=== PATIENT | female | born 1960 | race Caucasian/White ===

== ENCOUNTER 2019-05-11 11:10 | Emergency (ER) | payer MEDICAID ==
[2019-05-11] MEDS ORDERED: IPRATROPIUM/ALBUTEROL 3 ML NEB INH STA (12:12)
[2019-05-11] MEDS ORDERED: BENZONATATE 100 MG CAPSULE PO STA (12:44)
[2019-05-11] MEDS ORDERED: DOXYCYCLINE 100 MG TABLET PO STA (12:44)
[2019-05-11] MEDS ORDERED: predniSONE 20 MG TABLET PO STA (12:44)
[2019-05-11] MEDS ORDERED: ACETAMINOPHEN 325 MG TABLET PO STA (12:44)
--- NOTE | 2019-05-11 12:46 | ED Physician Documentation ---
PD HPI URI - Stated complaint Stated Complaint: SOA/BODY PX - Chief complaint Chief Complaint: Fever - History obtained from History obtained from: Patient - History of Present Illness Timing - onset: How many weeks ago (3) Timing duration: Weeks (3) Timing details: Gradual onset Pain level max: 7 Pain level now: 5 Associated symptoms: Fever, Chills, Nasal congestion, Rhinorrhea, Sinus pain, Dry cough, Dyspnea. No: Chest pain, NVD Contributing factors: Sick contact Improves by: Rest Worsened by: Activity, Breathing Similar symptoms before: Diagnosis (pneumonia) Recently seen: Not recently seen - Additional information Additional information: smoked for 25 years, quit for 10 and then started a few months ago again. Review of Systems Ten Systems: 10 systems reviewed and negative Constitutional: reports: Fever, Chills Nose: denies: Rhinorrhea / runny nose, Congestion Respiratory: reports: Dyspnea, Cough, Wheezing GI: denies: Nausea, Vomiting Skin: denies: Rash Musculoskeletal: denies: Neck pain, Back pain Neurologic: denies: Headache PD PAST MEDICAL HISTORY - Past Medical History Past Medical History: No - Past Surgical History Past Surgical History: No - Present Medications Home Medications: Ambulatory Orders Medication Instructions Recorded Confirmed Albuterol Sulf [Ventolin Hfa 1 - 2 puffs INH Q4HR PRN #1 inhaler 05/11/19 Inhaler] Benzonatate [Tessalon Perle] 100 - 200 mg PO TID PRN #30 capsule 05/11/19 Doxycycline Hyclate 100 mg PO BID #20 capsule 05/11/19 Ibuprofen [Motrin] 800 mg PO Q8H PRN #30 tablet 05/11/19 predniSONE [Deltasone] 10 mg PO [id number] #42 tab 05/11/19 - Allergies Allergies/Adverse Reactions: Allergies Allergy/AdvReac Type Severity Reaction Status Date / Time No Known Drug Allergies Allergy Verified 05/11/19 11:19 - Living Situation Living Situation: reports: With family Living Arrangement: reports: At home - Social History Does the pt smoke?: Yes Smoking Status: Current every day smoker Does the pt drink ETOH?: Yes Does the pt have substance abuse?: No - Immunizations Immunizations are current?: No - POLST Patient has POLST: No PD ED PE NORMAL - Vitals Vital signs reviewed: Yes - General General: Alert and oriented X 3, No acute distress, Well developed/nourished - HEENT HEENT: Ears normal, Moist mucous membranes, Pharynx benign - Neck Neck: Supple, no meningeal sign, No adenopathy - Cardiac Cardiac: RRR, Strong equal pulses - Respiratory Respiratory: Other (Diminished breath sounds bilaterally with occasional wheeze, mild rhonchi) - Abdomen Abdomen: Soft, Non tender, Non distended - Derm Derm: Warm and dry, No rash - Extremities Extremities: No edema - Neuro Neuro: Alert and oriented X 3 - Psych Psych: Normal mood, Normal affect Results - Vitals Vitals: Vital Signs - 24 hr 05/11/19 05/11/19 05/11/19 11:19 12:22 13:15 Temperature 37.7 C H 37.4 C Heart Rate 91 87 84 Respiratory 17 16 16 Rate Blood Pressure 130/70 134/78 H O2 Saturation 96 96 Oxygen O2 Source Room air - Labs Labs: Laboratory Tests 05/11/19 11:25 Influenza A (Rapid) Negative Influenza B (Rapid) Negative - Rads (name of study) Chest x-ray Radiology: Prelim report reviewed, EMP read contemporaneously, See rad report (Interstitial inflammation, possible chronic bronchitis?) PD MEDICAL DECISION MAKING - ED course Complexity details: reviewed results, re-evaluated patient, considered differential, d/w patient ED course: Patient appears to have bronchitis vs pneumonia on chest x-ray. Likely has undiagnosed COPD as well. We will place her on steroids for home, inhalers for home, antibiotics for home. She feels better after nebulizer treatment. We will have her follow-up with her doctor for further care. Patient counseled regarding signs and symptoms for which I believe and urgent re-evaluation would be necessary. Patient with good understanding of and agreement to plan and is comfortable going home at this time This document was made in part using voice recognition software. While efforts are made to proofread this document, sound alike and grammatical errors may occur. Departure - Departure Disposition: 01 Home, Self Care Clinical Impression: Pneumonia Qualifiers: Pneumonia type: due to unspecified organism Laterality: unspecified laterality Lung location: unspecified part of lung Qualified Code(s): J18.9 - Pneumonia, unspecified organism Condition: Good Instructions: ED Pneumonia Adult Follow-Up: your,doctor in 1 week [Other] Prescriptions: Albuterol Sulf [Ventolin Hfa Inhaler] 1 - 2 puffs INH Q4HR PRN #1 inhaler PRN Reason: Shortness Of Air/Wheezing Benzonatate [Tessalon Perle] 100 - 200 mg PO TID PRN #30 capsule PRN Reason: Cough Doxycycline Hyclate 100 mg PO BID #20 capsule Ibuprofen [Motrin] 800 mg PO Q8H PRN #30 tablet PRN Reason: PAIN &/OR FEVER predniSONE [Deltasone] 10 mg PO [id number] #42 tab Comments: Return if you worsen. Use the medications as prescribed. This should improve over the next few days. Discharge Date/Time: 05/11/19 13:18
--- NOTE | 2019-05-11 13:06 | XRAY Report ---
Reason: cough Procedure Date: 05/11/2019 Accession Number: [id number] / [id number] Procedure: XR - Chest 2 View X-Ray CPT Code: 42009 Final Report FULL RESULT: EXAM: CHEST RADIOGRAPHY EXAM DATE: 05/11/2019 12:36 PM. CLINICAL HISTORY: Cough. COMPARISON: None. TECHNIQUE: 2 views. FINDINGS: Lungs/Pleura: Mild interstitial prominence with some Coughing. No localized infiltrate, consolidation, effusion, or pneumothorax. Mediastinum: Heart and mediastinal contours are unremarkable. Upper lobe vessels not distended. Other: None. IMPRESSION: Interstitial prominence, bronchitis versus chronic changes. RADIA
[2019-05-11 13:16] VITALS: BP 134/78
== END 2019-05-11 13:18 | disposition home or self-care (01) ==
LOC: ED 11:10
DX: J18.9 Pneumonia, unspecified organism (principal); F17.200 Nicotine dependence, unspecified, uncomplicated
CPT/HCPCS: 71046; 87275; 87276; 94640; 99284; A9270; J7512

== ENCOUNTER 2019-05-12 15:44 | Emergency (ER) | payer MEDICAID ==
[2019-05-12] MEDS ORDERED: HYDROcod/ACETAM 5/325 MG TABLET PO STA (16:48)
--- NOTE | 2019-05-12 16:51 | ED Physician Documentation ---
History of Present Illness - Stated complaint Stated Complaint: COUGH - DX PNEUMONIA 05.11.19 - Chief complaint Chief Complaint: General - History obtained from History obtained from: Patient - History of Present Illness Timing: Yesterday (Seen by Dr. Waller yesterday and diagnosed with pneumonia. Started on steroids, doxycycline, and Tessalon. She is not doing any better, not really much worse either but she feels like she pulled a muscle in her stomach from the coughing. No fevers. Minimal shortness of breath. No syncope.) Review of Systems Constitutional: reports: Reviewed and negative Nose: reports: Reviewed and negative Throat: reports: Reviewed and negative Cardiac: reports: Reviewed and negative Respiratory: reports: Dyspnea, Cough PD PAST MEDICAL HISTORY - Past Surgical History Past Surgical History: No - Present Medications Home Medications: Ambulatory Orders Medication Instructions Recorded Confirmed Albuterol Sulf [Ventolin Hfa 1 - 2 puffs INH Q4HR PRN #1 inhaler 05/11/19 Inhaler] Benzonatate [Tessalon Perle] 100 - 200 mg PO TID PRN #30 capsule 05/11/19 Doxycycline Hyclate 100 mg PO BID #20 capsule 05/11/19 Ibuprofen [Motrin] 800 mg PO Q8H PRN #30 tablet 05/11/19 predniSONE [Deltasone] 10 mg PO [id number] #42 tab 05/11/19 Cefdinir 300 mg PO BID #14 capsule 05/12/19 Hydrocodone/Acetaminophen 1 - 2 each PO Q6H PRN #14 tablet 05/12/19 [Hydrocodon-Acetaminophen 5-325] - Allergies Allergies/Adverse Reactions: Allergies Allergy/AdvReac Type Severity Reaction Status Date / Time No Known Drug Allergies Allergy Verified 05/12/19 16:02 - Social History Does the pt smoke?: Yes Smoking Status: Current every day smoker Does the pt drink ETOH?: Yes Does the pt have substance abuse?: No - Immunizations Immunizations are current?: No - POLST Patient has POLST: No PD ED PE NORMAL - Vitals Vital signs reviewed: Yes - General General: Alert and oriented X 3, No acute distress - HEENT HEENT: PERRL, EOMI - Neck Neck: Supple, no meningeal sign, No bony TTP - Cardiac Cardiac: RRR, No murmur - Respiratory Respiratory: No respiratory distress, Other (Some wheezes throughout with focal rhonchi at the left base but excellent air motion) - Abdomen Abdomen: Non tender - Back Back: No CVA TTP, No spinal TTP - Derm Derm: Normal color, Warm and dry - Extremities Extremities: No edema, No calf tenderness / cord - Neuro Neuro: Alert and oriented X 3, Normal speech Results - Vitals Vitals: Vital Signs - 24 hr 05/12/19 15:55 Temperature 36.9 C Heart Rate 88 Respiratory 18 Rate Blood Pressure 147/75 H O2 Saturation 95 Oxygen O2 Source Room air PD MEDICAL DECISION MAKING - ED course Complexity details: reviewed old records (from [facility]) ED course: 59-year-old woman with pneumonia, no better today, we discussed the expected course of her symptoms, we will add cefdinir. We also had some hydrocodone for the cough and muscle aches from the coughing. Vital signs and exam are otherwise reassuring. Departure - Departure Disposition: Home, Self Care Clinical Impression: Pneumonia Qualifiers: Pneumonia type: due to unspecified organism Laterality: unspecified laterality Lung location: unspecified part of lung Qualified Code(s): J18.9 - Pneumonia, unspecified organism Condition: Good Record reviewed to determine appropriate education?: Yes Instructions: ED Pneumonia Adult Prescriptions: Cefdinir 300 mg PO BID #14 capsule Hydrocodone/Acetaminophen [Hydrocodon-Acetaminophen 5-325] 1 - 2 each PO Q6H PRN #14 tablet PRN Reason: pain Comments: You can stop the steroids if they are making you anxious and hyper. Continue the doxycycline and add the Cefdinir. You can take the hydrocodone either for pain or cough but do not drink or drive with it. Return if worse and follow-up with your doctor in a week.
[2019-05-12 17:05] VITALS: BP 119/58
== END 2019-05-12 17:06 | disposition home or self-care (01) ==
LOC: ED 15:44
DX: J18.9 Pneumonia, unspecified organism (principal); F17.200 Nicotine dependence, unspecified, uncomplicated
CPT/HCPCS: 99282; 99284; A9270